=== PATIENT | female | born 1990 | race Two or more races ===

== ENCOUNTER 2023-06-26 08:29 | Outpatient (CLI) | payer OTHER | END 2023-06-26 08:30 | disposition home or self-care (01) | LOC: PRENATAL 08:29 | PROVIDERS: ATTEND Obstetrics & Gynecology Maternal & Fetal Medicine | DX: O36.80X0 Pregnancy with inconclusive fetal viability, not applicable or unspecified (principal); Z36.82 Encounter for antenatal screening for nuchal translucency; O99.280 Endocrine, nutritional and metabolic diseases complicating pregnancy, unspecified trimester; Z36.9 Encounter for antenatal screening, unspecified; O21.0 Mild hyperemesis gravidarum; Z3A.13 13 weeks gestation of pregnancy ==

== ENCOUNTER 2023-10-14 09:03 | Outpatient (CLI) | payer OTHER | END 2023-10-14 09:04 | disposition home or self-care (01) | LOC: PRENATAL 09:03 | PROVIDERS: ATTEND Obstetrics & Gynecology Maternal & Fetal Medicine | DX: O26.843 Uterine size-date discrepancy, third trimester (principal); O99.283 Endocrine, nutritional and metabolic diseases complicating pregnancy, third trimester; O36.5930 Maternal care for other known or suspected poor fetal growth, third trimester, not applicable or unspecified; Z3A.28 28 weeks gestation of pregnancy ==

== ENCOUNTER 2023-11-25 09:27 | Outpatient (CLI) | payer OTHER | END 2023-11-25 09:32 | disposition home or self-care (01) | LOC: PRENATAL 09:27 | PROVIDERS: ATTEND Obstetrics & Gynecology Maternal & Fetal Medicine | DX: O26.843 Uterine size-date discrepancy, third trimester (principal); O36.8130 Decreased fetal movements, third trimester, not applicable or unspecified; O99.283 Endocrine, nutritional and metabolic diseases complicating pregnancy, third trimester; Z3A.34 34 weeks gestation of pregnancy ==